=== PATIENT | male | born 1980 | race Two or more races ===

== ENCOUNTER 2017-02-18 21:29 | Emergency (ER) | payer MEDICARE ==
[~2017-02-18] VITALS: Ht 177.8 cm; Wt 100.0 kg
[2017-02-18 23:21] VITALS: BP 136/88
[2017-02-19] MEDS ORDERED: CARB200T4 PO (00:46)
[2017-02-19] MEDS ORDERED: OMEP40CA6 PO (00:47)
[2017-02-19] MEDS ORDERED: VALA500T PO (00:48)
[2017-02-19] MEDS ORDERED: RISP3TAB3 PO (00:49)
== END 2017-02-18 23:23 | disposition home or self-care (01) ==
LOC: ED 23:14
DX: F33.0 Major depressive disorder, recurrent, mild (principal); F29 Unspecified psychosis not due to a substance or known physiological condition; N48.9 Disorder of penis, unspecified; K21.9 Gastro-esophageal reflux disease without esophagitis; F41.1 Generalized anxiety disorder; F20.9 Schizophrenia, unspecified
CPT/HCPCS: 99284; Q0177

== ENCOUNTER 2018-02-10 10:47 | Emergency (ER) | payer MEDICARE ==
[~2018-02-10] VITALS: Ht 177.8 cm; Wt 90.0 kg
[~2018-02-10 10:47] MED LIST: CARB200T4 PO; OMEP40CA6 PO; RISP3TAB3 PO; VALA500T PO
[2018-02-10 10:50] VITALS: BP 148/92
== END 2018-02-10 12:38 | disposition home or self-care (01) ==
LOC: ED 12:20
DX: Z00.00 Encounter for general adult medical examination without abnormal findings (principal); F32.9 Major depressive disorder, single episode, unspecified; F20.9 Schizophrenia, unspecified; K21.9 Gastro-esophageal reflux disease without esophagitis
CPT/HCPCS: 99283